=== PATIENT | female | born 1950 | race Caucasian/White ===

== ENCOUNTER 2019-06-05 08:53 | Day surgery (SDC) | payer MEDICARE, OTHER ==
[2019-06-03 09:21] VITALS: BMI 37.8
--- NOTE | 2019-06-05 06:59 | P.GSHP ---
History of Present Illness H&P Date: 06/05/19 CHIEF COMPLAINT: Cholecystitis HISTORY OF PRESENT ILLNESS: The patient is a 47-year-old female who presents with history of epigastric including right upper quadrant abdominal pain. She underwent diagnostic studies for her gallbladder. Separately her clinical picture was consistent with cholecystitis. Now she presents for surgical intervention. PAST MEDICAL HISTORY: Please see list PAST SURGICAL HISTORY: Please see list MEDICATIONS: Please see list ALLERGIES: Please see list SOCIAL HISTORY: Please see list FAMILY HISTORY: Pertinent for gallbladder disease REVIEW OF ORGAN SYSTEMS: CONSTITUTIONAL: No reports of fevers or chills. PHYSICAL EXAM: VITAL SIGNS: Afebrile vital signs stable GENERAL: Well-developed pleasant in no acute distress. HEENT: No scleral icterus. Extraocular movements grossly intact. Moist buccal mucosa. NECK: Supple without lymphadenopathy. CHEST: Unlabored respirations. Equal bilateral excursions. CARDIOVASCULAR: Regular rate regular rhythm rhythm. Distal 2+ pulses. ABDOMEN: Soft, nondistended. Tender along the epigastrium and right upper quadrant. MUSCULOSKELETAL: No clubbing, cyanosis, or edema. NEURO: Cranial nerves II to XII within normal limits. No focal or lateralizing signs. PSYCH: Alert and oriented to person, place and time. SKIN: Well-perfused good skin turgor. ASSESSMENT: 1. Epigastric and right upper quadrant abdominal pain 2. Chronic cholecystitis 3. Symptomatic gallstones. PLAN: 1. Will need a robotic cholecystectomy possible open. Benefits and risks were described. 2. Heparin for DVT prophylaxis 5000 units. 3. Antibiotic prophylaxis. Past Medical History Past Medical History: Asthma, Coronary Artery Disease (CAD), Heart Failure, Diabetes Mellitus, GERD/Reflux, Hyperlipidemia, Hypertension, Osteoarthritis (OA), Renal Disease Additional Past Medical History / Comment(s): ISCHEMIC HEART DISEASE, HAVING DIFFICULTY SWALLOWING,INSOMNIA. [facility] STATES "PT IS ABLE TO SIGN OWN CONSENTS". USES WALKER,gout, stage 4 kidney disease,neuroapathy,anemia History of Any Multi-Drug Resistant Organisms: None Reported Past Surgical History: Appendectomy, Heart Catheterization, Joint Replacement Additional Past Surgical History / Comment(s): BENIGN CYST REMOVED FROM MOUTH, RT KNEE REPLACEMENT, LT KNEE REPLACEMENT X 2 Past Anesthesia/Blood Transfusion Reactions: No Reported Reaction Additional Past Anesthesia/Blood Transfusion Reaction / Comment(s): J[facility]otsna tosc[facility] states "pt stated gets dizzy with position changes. Father had hx of confusion w/ Anesthesia,no known blood transfusions Smoking Status: Never smoker - Past Family History Mother History Unknown: Yes Father Family Medical History: Dementia Medications and Allergies Home Medications Medication Instructions Recorded Confirmed Type Acetaminophen Tab [Tylenol] 650 mg PO Q4H PRN 06/01/14 06/03/19 History Atenolol [Tenormin] 50 mg PO BID@0900,1700 06/01/14 06/03/19 History Cholecalciferol [Vitamin D3] 3,000 unit PO DAILY 06/01/14 06/03/19 History Divalproex ER [Depakote ER] 500 mg PO BID 06/01/14 06/03/19 History Hypromellose [Artificial Tears] 1 drop BOTH EYES DAILY PRN 06/01/14 06/03/19 History Losartan Potassium 100 mg PO QAM 06/01/14 06/03/19 History Montelukast [Singulair] 10 mg PO HS 06/01/14 06/03/19 History Multivitamin with Iron [Daily 1 each PO DAILY 06/01/14 06/03/19 History Multivitamin with Iron] busPIRone HCL [Buspar] 10 mg PO TID 06/01/14 06/03/19 History metFORMIN HCL [Glucophage] 500 mg PO BID 06/01/14 06/03/19 History Albuterol Inhaler [Ventolin Hfa 1 - 2 puff INHALATION RT-Q6H PRN 06/03/19 06/03/19 History Inhaler] Allopurinol [Zyloprim] 100 mg PO DAILY 06/03/19 06/03/19 History Atorvastatin [Lipitor] 10 mg PO HS 06/03/19 06/03/19 History Desvenlafaxine Succinate [Pristiq] 100 mg PO QAM 06/03/19 06/03/19 History Escitalopram [Lexapro] 20 mg PO QAM 06/03/19 06/03/19 History Ferrous Sulfate [Iron] 325 mg PO DAILY 06/03/19 06/03/19 History Fluticasone Propionate 220 Mcg 2 puff INHALATION RT-BID 06/03/19 06/03/19 History [Flovent 220 Mcg Inhaler (Bulk)] Furosemide [Lasix] 40 mg PO QAM 06/03/19 06/03/19 History Gabapentin [Neurontin] 100 mg PO BID@0900,1700 06/03/19 06/03/19 History Lurasidone [Latuda] 40 mg PO 1700 06/03/19 06/03/19 History Magnesium 400 mg PO BID 06/03/19 06/03/19 History Omeprazole [PriLOSEC] 20 mg PO QAM 06/03/19 06/03/19 History Potassium Chloride 10 meq PO DAILY 06/03/19 06/03/19 History Sennosides [Senna] 8.6 mg PO HS 06/03/19 06/03/19 History Allergies Allergy/AdvReac Type Severity Reaction Status Date / Time diazepam [From Valium] Allergy Unknown Verified 06/03/19 09:01 lamotrigine [From Lamictal] Allergy Unknown Verified 06/03/19 09:01 paroxetine HCl [From Paxil] Allergy Unknown Verified 06/03/19 09:01 quetiapine fumarate Allergy Unknown Verified 06/03/19 09:01 [From Seroquel] venlafaxine HCl Allergy Unknown Verified 06/03/19 09:01 [From Effexor]
[~2019-06-05 08:53] MED LIST: DEXAMETHASONE SOD PHOSPHATE 10 MG/ML 1 ML VIAL IV ONE; HEPARIN SODIUM,PORCINE 5,000 UNIT/ML 1 ML VIAL SQ ONE; HYDROmorphone 0.5 MG/0.5 ML SYRINGE IVP PRN; INDOCYANINE GREEN 25 MG VIAL IV STA; LACTATED RINGERS 1,000 ML IV SCH; LIDOCAINE 1% 20 ML VIAL (10MG/ML) FOR IV START INTRADERMA PRN; MIDAZOLAM 2 MG/2 ML VIAL IV PRN; ONDANSETRON 4 MG/2 ML VIAL IVP ONE; SCOPOLAMINE 1.5MG/72HR PATCH TRANSDERM ONE
[2019-06-05 09:33] VITALS: RESP 16
[2019-06-05 09:45] LABS: Glucose,Whole Blood 117 mg/dL (75-99)
[2019-06-05 10:43] LABS: Basophils % (A) 1 %; Eosinophils # (A) 0.1 k/uL (0-0.7); Eosinophils % (A) 2 %; HGB 10.6 gm/dL (11.4-16.0); Lymphocytes # (A) 1.7 k/uL (1.0-4.8); Lymphocytes % (A) 45 %; MCH 30.4 pg (25.0-35.0); Mean Platelet Volume 6.7; Monocytes # (A) 0.3 k/uL (0-1.0); Monocytes % (A) 8 %; Neutrophils # (A) 1.6 k/uL (1.3-7.7); Neutrophils % (A) 43 %; Platelet Count 171 k/uL (150-450); RBC 3.48 m/uL (3.80-5.40); RDW 14.2 % (11.5-15.5); WBC 3.8 k/uL (3.8-10.6)
[2019-06-05] MEDS ORDERED: ROCURONIUM BROMIDE 10 MG/ML 10 ML VIAL IV ONE (10:44)
[2019-06-05] MEDS ORDERED: INDOCYANINE GREEN 25 MG VIAL IV ONE (10:44)
[2019-06-05] MEDS ORDERED: LIDOCAINE 1% INJ 10MG/ML (20 ML MDV) ONE (10:44)
[2019-06-05] MEDS ORDERED: NEOSTIGMINE 1 MG/ML 10 ML VIAL ONE (10:44)
[2019-06-05] MEDS ORDERED: GLYCOPYRROLATE 0.2 MG/ML 2 ML VIAL ONE (10:44)
[2019-06-05] MEDS ORDERED: fentaNYL (PF) 50 MCG/ML 2 ML AMP ONE (10:44)
[2019-06-05] MEDS ORDERED: PROPOFOL 10 MG/ML 20 ML VIAL IV ONE (10:44)
[2019-06-05] MEDS ORDERED: BUPIVACAINE (PF) 0.25% 30 ML VIAL SQ ONE (11:12)
[2019-06-05 11:32] LABS: Albumin 3.8 g/dL (3.5-5.0); Calcium 9.8 mg/dL (8.4-10.2); Potassium 4.1 mmol/L (3.5-5.1); Total Bilirubin 0.5 mg/dL (0.2-1.3); Total Protein 7.1 g/dL (6.3-8.2)
[2019-06-05 12:00] LABS: Glucose,Whole Blood 194 mg/dL (75-99)
--- NOTE | 2019-06-05 12:00 | P.OP ---
Date of Procedure: 06/05/19 Description of Procedure: SURGEON: LI HAGEN MD PREOPERATIVE DIAGNOSES: 1. Right upper quadrant abdominal pain 2. Leukocytosis 3. Chronic cholecystitis with gallstones 4. Chronic kidney disease stage IV secondary to hypertensive heart disease 5. Morbid obesity next calories, BMI 37.9 6. Diabetes type 2, [id number], controlled 7. Gastroesophageal reflux disease 8. Diabetic neuropathy 9. Chronic iron deficiency anemia 10. Seizure disorder 11. Hyperlipidemia 12. Asthma 13. Gout 14. Coronary artery disease with ischemic cardiomyopathy 15. Chronic diastolic heart failure POSTOPERATIVE DIAGNOSES: 1. Right upper quadrant abdominal pain 2. Leukocytosis 3. Chronic cholecystitis with gallstones 4. Chronic kidney disease stage IV secondary to hypertensive heart disease 5. Morbid obesity next calories, BMI 37.9 6. Diabetes type 2, [id number], controlled 7. Gastroesophageal reflux disease 8. Diabetic neuropathy 9. Chronic iron deficiency anemia 10. Seizure disorder 11. Hyperlipidemia 12. Asthma 13. Gout 14. Coronary artery disease with ischemic cardiomyopathy 15. Chronic diastolic heart failure OPERATION: Robotic-assisted da Ofe Xi laparoscopic cholecystectomy, multiport with FIREFLY ESTIMATED BLOOD LOSS: 5 mL. SPECIMENS REMOVED: Gallbladder. COMPLICATIONS: None. OPERATIVE FINDINGS: 1. Chronic cholecystitis 2. Console time 13 minutes INDICATIONS: The patient is a 69-year-old female who presents with ch olelcystitis. Surgical intervention with a laparoscopic cholecystectomy was described at length including injury to the biliary tree, bleeding, infection, need for further surgery. Informed consent was obtained. Robotic assisted laparoscopic approach was described. Benefits and risks of the procedure including but not limited to bleeding, infection, injury to the biliary tree was described. Informed consent was obtained. DESCRIPTION OF PROCEDURE: Patient was brought to the operating room, placed in supine position. After general induction, the abdomen had been prepped and draped in standard sterile fashion. The robotic da Ofe XI system was primed. After a timeout protocol was performed, the patient had been prepped and draped in standard sterile fashion. The patient was injected with indocyanine green. A 5 mm 0 degrees laparoscopic trocar entry was performed along the left upper quadrant. The abdomen insufflated to 15 mmHg pressure which was tolerated well. Diagnostic laparoscopy demonstrated no injury to bowel viscera or mesentery. The liver surface was unremarkable. Next, two 8 mm robotic ports were placed along the right upper abdomen. The camera 8-mm port was maintained along the epigastrium. Another 8 mm port was placed along the left upper abdominal wall after exchanging the 5 mm port. Please note that the ports were placed at least 10 to 15 cm away from the target anatomy of the gallbladder. The robot was docked along the left lateral abdomen. The patient was repositioned in reverse Trendelenburg position. Using a grasper for arm 3, a grasper for arm 4, including hook cautery for arm 1, the robotic system was docked and primed as described. Instruments were interchanged by the mobile unit assistant including hook cautery, Bovie cautery and clip appliers. I had sat at the console. The gallbladder fundus was retracted over the dome of the liver. Initial attention was brought to the infundibulum which was gently retracted in the inferior lateral approach. Using a grasper, the cystic duct including the cystic artery was carefully skeletonized. FIREFLY was used to identify the cystic artery and cystic structures. A critical view of safety was obtained. Large PLASTIC clips were used throughout the entire case. Using a clip bituminous paving machine operator 2 clips were placed proximally, and 1 clip was placed between the infundibulum and cystic duct and divided using cautery. Next, the cystic artery was similarly clipped and cauterized. Electro-Bovie cautery was used to remove the gallbladder from the hepatic fossa. Hemostasis was checked and found to be adequate. The robot was undocked. I re-scrubbed into the case. Using a 10 mm Endo Catch bag via the left upper quadrant incision, the specimen was removed from the abdominal cavity. All pneumoperitoneum instruments were evacuated from the abdominal cavity. The incisions were reapproximated using 4-0 Monocryl in an interrupted subcuticular fashion. Fascial defects were less than 8 mm in size. Please note along the trocar sites, local anesthetic was placed as a field block prior to insertion of all instruments. Liquid glue was applied to the skin. At the end of the procedure needle, sponge, and instrument count had been verified correct by the nursing surgical services director. The patient was transferred to postanesthesia care unit in stable condition. Plan - Discharge Summary Discharge Rx Participant: No New Discharge Prescriptions: New Acetaminophen Tab [Tylenol Tab] 500 mg PO Q6H PRN #30 tablet PRN Reason: Pain No Action Montelukast [Singulair] 10 mg PO HS Hypromellose [Artificial Tears] 1 drop BOTH EYES DAILY PRN PRN Reason: DRYNESS Acetaminophen Tab [Tylenol] 650 mg PO Q4H PRN PRN Reason: Pain Atenolol [Tenormin] 50 mg PO BID@0900,1700 Cholecalciferol [Vitamin D3] 3,000 unit PO DAILY metFORMIN HCL [Glucophage] 500 mg PO BID Multivitamin with Iron [Daily Multivitamin with Iron] 1 each PO DAILY Divalproex ER [Depakote ER] 500 mg PO BID busPIRone HCL [Buspar] 10 mg PO TID Losartan Potassium 100 mg PO QAM Fluticasone Propionate 220 Mcg [Flovent 220 Mcg Inhaler (Bulk)] 2 puff INHALATION RT-BID Albuterol Inhaler [Ventolin Hfa Inhaler] 1 - 2 puff INHALATION RT-Q6H PRN PRN Reason: sob Gabapentin [Neurontin] 100 mg PO BID@0900,1700 Potassium Chloride 10 meq PO DAILY Omeprazole [PriLOSEC] 20 mg PO QAM Atorvastatin [Lipitor] 10 mg PO HS Ferrous Sulfate [Iron] 325 mg PO DAILY Sennosides [Senna] 8.6 mg PO HS Magnesium 400 mg PO BID Furosemide [Lasix] 40 mg PO QAM Lurasidone [Latuda] 40 mg PO 1700 Escitalopram [Lexapro] 20 mg PO QAM Allopurinol [Zyloprim] 100 mg PO DAILY Desvenlafaxine Succinate [Pristiq] 100 mg PO QAM Discharge Medication List Acetaminophen Tab [Tylenol] 650 mg PO Q4H PRN 06/01/14 [History] Atenolol [Tenormin] 50 mg PO BID@0900,1700 06/01/14 [History] Cholecalciferol [Vitamin D3] 3,000 unit PO DAILY 06/01/14 [History] Divalproex ER [Depakote ER] 500 mg PO BID 06/01/14 [History] Hypromellose [Artificial Tears] 1 drop BOTH EYES DAILY PRN 06/01/14 [History] Losartan Potassium 100 mg PO QAM 06/01/14 [History] Montelukast [Singulair] 10 mg PO HS 06/01/14 [History] Multivitamin with Iron [Daily Multivitamin with Iron] 1 each PO DAILY 06/01/14 [History] busPIRone HCL [Buspar] 10 mg PO TID 06/01/14 [History] metFORMIN HCL [Glucophage] 500 mg PO BID 06/01/14 [History] Albuterol Inhaler [Ventolin Hfa Inhaler] 1 - 2 puff INHALATION RT-Q6H PRN 06/03/19 [History] Allopurinol [Zyloprim] 100 mg PO DAILY 06/03/19 [History] Atorvastatin [Lipitor] 10 mg PO HS 06/03/19 [History] Desvenlafaxine Succinate [Pristiq] 100 mg PO QAM 06/03/19 [History] Escitalopram [Lexapro] 20 mg PO QAM 06/03/19 [History] Ferrous Sulfate [Iron] 325 mg PO DAILY 06/03/19 [History] Fluticasone Propionate 220 Mcg [Flovent 220 Mcg Inhaler (Bulk)] 2 puff INHALATI ON RT-BID 06/03/19 [History] Furosemide [Lasix] 40 mg PO QAM 06/03/19 [History] Gabapentin [Neurontin] 100 mg PO BID@0900,1700 06/03/19 [History] Lurasidone [Latuda] 40 mg PO 1700 06/03/19 [History] Magnesium 400 mg PO BID 06/03/19 [History] Omeprazole [PriLOSEC] 20 mg PO QAM 06/03/19 [History] Potassium Chloride 10 meq PO DAILY 06/03/19 [History] Sennosides [Senna] 8.6 mg PO HS 06/03/19 [History] Acetaminophen Tab [Tylenol Tab] 500 mg PO Q6H PRN #30 tablet 06/05/19 [Rx] Follow up Appointment(s)/Referral(s): Li Hagen MD [STAFF PHYSICIAN] - 06/09/19 Patient Instructions/Handouts: Low Fat Diet (DC), Laparoscopic Cholecystectomy (DC) Activity/Diet/Wound Care/Special Instructions: No lifting for 4 pounds in 2 weeks until June 19. May shower. No bathtub soaks for 2 weeks until June 19. Discharge Disposition: HOME SELF-CARE
[2019-06-05 12:05] VITALS: TEMP 97.6
[2019-06-05 13:33] VITALS: BP 126/71; PULSE 77
== END 2019-06-05 14:02 | disposition home or self-care (01) ==
LOC: OR 08:53
PROVIDERS: ATTEND Surgery Plastic and Reconstructive Surgery
DX: K80.10 Calculus of gallbladder with chronic cholecystitis without obstruction (principal); D72.829 Elevated white blood cell count, unspecified; I13.0 Hypertensive heart and chronic kidney disease with heart failure and stage 1 through stage 4 chronic kidney disease, or unspecified chronic kidney disease; N18.4 Chronic kidney disease, stage 4 (severe); I50.32 Chronic diastolic (congestive) heart failure; E11.22 Type 2 diabetes mellitus with diabetic chronic kidney disease; E66.01 Morbid (severe) obesity due to excess calories; K21.9 Gastro-esophageal reflux disease without esophagitis; E11.40 Type 2 diabetes mellitus with diabetic neuropathy, unspecified; D50.9 Iron deficiency anemia, unspecified; G40.909 Epilepsy, unspecified, not intractable, without status epilepticus; E78.5 Hyperlipidemia, unspecified; J45.909 Unspecified asthma, uncomplicated; M19.90 Unspecified osteoarthritis, unspecified site; I25.10 Atherosclerotic heart disease of native coronary artery without angina pectoris; I25.5 Ischemic cardiomyopathy; R13.10 Dysphagia, unspecified; G47.00 Insomnia, unspecified; M10.9 Gout, unspecified; Z68.37 Body mass index [BMI] 37.0-37.9, adult; Z88.8 Allergy status to other drugs, medicaments and biological substances; Z99.89 Dependence on other enabling machines and devices; Z90.49 Acquired absence of other specified parts of digestive tract; Z98.890 Other specified postprocedural states; Z96.653 Presence of artificial knee joint, bilateral; Z87.898 Personal history of other specified conditions; Z79.84 Long term (current) use of oral hypoglycemic drugs; Z79.899 Other long term (current) drug therapy; Z84.89 Family history of other specified conditions; Z81.8 Family history of other mental and behavioral disorders
CPT/HCPCS: 47562; 88304; 80053; 85025; J1644; J1100; J2710; J0690; J2405; J2001; J3010; J2704